=== PATIENT | female | born 1965 | race African-American/Black ===

== ENCOUNTER 2025-02-09 01:34 | Day surgery (SDC) | payer BC, SELFPAY ==
[2025-02-05 12:18] VITALS: BMI 29.0
[2025-02-09 12:48] VITALS: BP 139/81; PULSE 82; RESP 16; TEMP 36.9; O2SAT 100; BMI 28.3
--- NOTE | 2025-02-09 13:01 | WPDANESEPPF ---
Anes - Initial Pre Proc Eval Procedure: Operation Date: 02/09/25 14:00 Proposed Procedures p Screening Colonoscopy - Jimi Rondon MD Date/Time: 02/09/25 13:01 Surgeon: Jimi Rondon MD Pre Op Diagnosis: Family history of malignant neoplasm of digestive Patient Data Age: 59 Gender: F Height: 1.7 m Weight: 81.9 kg Last Vital Signs Temp 98.4 F 02/09/25 12:48 Pulse 82 02/09/25 12:48 Resp 16 02/09/25 12:48 BP 139/81 02/09/25 12:48 Pulse Ox 100 02/09/25 12:48 O2 Del Method Room Air 02/09/25 12:48 Allergies Allergy/AdvReac Type Severity Reaction Status Date / Time balsam tiffany Allergy Mild Unknown Verified 02/09/25 12:48 cobalt Allergy Mild Unknown Verified 02/09/25 12:48 nickel Allergy Mild Unknown Verified 02/09/25 12:48 red (food color) Allergy Mild Unknown Verified 02/09/25 12:48 Contrast Media Allergy Intermediate Vomiting Uncoded 07/31/23 13:38 yellow food dye Allergy Mild Unknown Uncoded 07/31/23 13:38 Home Medications ?Medication ?Instructions ?Recorded ?Confirmed ?Type potassium chloride 20 mEq 20 meq PO DAILY 04/19/20 02/09/25 History tablet,extended release magnesium 200 mg tablet 200 mg PO DAILY 05/02/21 02/09/25 History coenzyme X20-bjhvsld E 100 mg-100 1 cap PO DAILY 06/26/22 02/09/25 History unit capsule melatonin 5 mg capsule 5 mg PO DAILY 06/26/22 02/09/25 History thyroid (pork) 113.75 mg tablet 112.5 mg PO DAILY 06/26/22 02/09/25 History verbase .Route 06/26/22 06/26/22 History vitamin b3 .Route 06/26/22 06/26/22 History cholecalciferol (vitamin D3) 25 25 mcg PO DAILY 07/31/23 02/09/25 History mcg (1,000 unit) capsule meloxicam 15 mg tablet 15 mg PO DAILY PRN pain 02/05/25 02/05/25 History Patient hx anesthesia problems: none Family hx anesthesia problems: none Results Review: All pre-operative results and documents have been reviewed as part of the pre-operative evaluation. PMFSH Surgical History Surgical History H/O right knee surgery H/O left knee surgery History of foot surgery History of ankle surgery History of partial hysterectomy Family History Family History Grandparent Carcinoma of colon Social History Social History Smoking status: Never smoker Alcohol intake: current Substance use type: does not use Living arrangements: with family Spiritual care concerns: No Anes - Eval Final PreProcedure Day of Procedure 02/09/25 13:01 Patient weight: normal Lungs: normal air movement Airway: Mallampati scale class II and special considerations (Invisalign buttons in place. ) Neurological: alert and oriented Last oral intake: >/= 8 hours ASA classification: I Emergent: no Anesthetic plan: proceed Anesthesia type and monitoring: general GIVS and standard monitoring Results Review: All pre-operative results and documents have been reviewed as part of the pre-operative evaluation. Pt very active, no cp or sob. Informed Consent: The patient's anesthetic plan and its attendant risks and benefits were discussed with the patient/family/POA. Questions were solicited and answers provided to the satisfaction of the patient/family/POA.
[2025-02-09] MEDS: LACTATED RINGERS 1,000 ML 150 ML IV CONT (13:04)
--- NOTE | 2025-02-09 13:44 | PM.IMHP ---
H&P: HPI History of Present Illness Date/Time: 02/09/25 13:44 Chief Complaint: History of colon polyps Narrative: The patient has a history of colonic polyps, the last colonoscopy was 7 years ago. There is a family history of colon cancer in a grandfather. None of her parents or siblings had colon cancer. Review of Systems Review of Systems: All systems reviewed & are unremarkable except as noted in HPI and below PMFSH Surgical History Surgical History H/O right knee surgery H/O left knee surgery History of foot surgery History of ankle surgery History of partial hysterectomy Family History Family History Grandparent Carcinoma of colon Social History Social History Smoking status: Never smoker Alcohol intake: current Substance use type: does not use Living arrangements: with family Spiritual care concerns: No Meds Home Medications and Allergies Home Medications ?Medication ?Instructions ?Recorded ?Confirmed ?Type potassium chloride 20 mEq 20 meq PO DAILY 04/19/20 02/09/25 History tablet,extended release magnesium 200 mg tablet 200 mg PO DAILY 05/02/21 02/09/25 History coenzyme D39-[id number] E 100 mg-100 1 cap PO DAILY 06/26/22 02/09/25 History unit capsule melatonin 5 mg capsule 5 mg PO DAILY 06/26/22 02/09/25 History thyroid (pork) 113.75 mg tablet 112.5 mg PO DAILY 06/26/22 02/09/25 History verbase .Route 06/26/22 06/26/22 History vitamin b3 .Route 06/26/22 06/26/22 History cholecalciferol (vitamin D3) 25 25 mcg PO DAILY 07/31/23 02/09/25 History mcg (1,000 unit) capsule meloxicam 15 mg tablet 15 mg PO DAILY PRN pain 02/05/25 02/05/25 History Allergies Allergy/AdvReac Type Severity Reaction Status Date / Time balsam tiffany Allergy Mild Unknown Verified 02/09/25 12:48 cobalt Allergy Mild Unknown Verified 02/09/25 12:48 nickel Allergy Mild Unknown Verified 02/09/25 12:48 red (food color) Allergy Mild Unknown Verified 02/09/25 12:48 Contrast Media Allergy Intermediate Vomiting Uncoded 07/31/23 13:38 yellow food dye Allergy Mild Unknown Uncoded 07/31/23 13:38 Vital Signs Vital Signs - 24 hr 02/09/25 12:48 Temperature 98.4 F Pulse Rate 82 Respiratory Rate 16 Blood Pressure 139/81 Pulse Oximetry 100 Oxygen Delivery Room Air Exam Const: General: cooperative and healthy appearing Resp: Effort & Inspection: normal respiratory effort and able to speak in complete sentences Auscultation: clear to auscultation bilaterally Cardio: Rate: regular rate Rhythm: regular rhythm GI: Inspection: normal to inspection GI Palp: No No hepatosplenomegaly present Auscultation: normal bowel sounds Rectal Exam: deferred Skin: General skin exam: normal color Psych: Appearance: grossly normal Mental Status: mental status grossly normal Assessment and Plan Assessment and plan (1) History of colonic polyps: Code(s): Z86.0100 - Personal history of colon polyps, unspecified Status: Acute Assessment and Plan: The patient is deemed a good candidate for the procedure. Consent signed. Will proceed.
[2025-02-09 14:06] VITALS: BP 109/62; PULSE 69; RESP 20; O2SAT 100
[2025-02-09 14:16] VITALS: BP 129/80; PULSE 60; RESP 18; O2SAT 100
[2025-02-09 14:26] VITALS: BP 134/76; PULSE 61; RESP 13; O2SAT 100
== END 2025-02-09 14:42 | disposition home or self-care (01) ==
PROVIDERS: Visit Provider Internal Medicine Gastroenterology
PROC: 0DJD8ZZ Inspection of Lower Intestinal Tract, Via Natural or Artificial Opening Endoscopic (ICD-10-PCS; CPT 45378; principal; 2025-02-09 14:00)
DX: Z12.11 Encounter for screening for malignant neoplasm of colon (principal); K64.8 Other hemorrhoids; Z98.890 Other specified postprocedural states; Z86.0100 Personal history of colon polyps, unspecified; Z80.0 Family history of malignant neoplasm of digestive organs
CPT/HCPCS: 45378; J2003; J2704; J7120